=== PATIENT | female | born 1985 | race Asian ===

== ENCOUNTER 2022-03-19 05:44 | Inpatient (IN) ==
[2022-03-19] MEDS ORDERED: OXYTOCIN 30 UNITS/500 ML BAG IV PRN ×3 (06:16→23:33)
[2022-03-19] MEDS ORDERED: LIDOCAINE 1% LOCAL 20 ML VIAL INFIL PRN (06:16)
[2022-03-19] MEDS: LACTATED RINGER'S 1,000 ML IV PRN ×4 (06:24→19:08)
[2022-03-19 07:01] LABS: Hematocrit (blood only) 36.8 % (34.1-44.9); Hemoglobin 12.6 g/dl (12.0-16.0); Mean Corpuscular Hemoglobin 31.6 pg (25.0-34.0); Mean Corpuscular Hgb Conc 34.2 g/dL (32.0-36.0); Mean Corpuscular Volume 92.2 fL (80.0-100.0); Mean Platelet Volume 9.5 fL (9.4-12.3); Platelet Count 206 K/uL (130-400); RDW Coefficient of Variation 12.8 % (11.5-14.5); RDW Standard Deviation 42.6 fL (36.4-46.3); Red Blood Count 3.99 M/uL (3.93-5.22); White Blood Count 11.62 K/ul (4.8-10.8)
[2022-03-19] MEDS ORDERED: ePHEDrine sulfate 50 MG/ML AMP ONE (07:01)
[2022-03-19] MEDS ORDERED: LIDOCAINE 2%/EPINEPHRINE 1:200,000 20 ML SDV ONE (07:02)
[2022-03-19] MEDS ORDERED: fentaNYL 2MCG/ML ROPIVACAINE 1.25MG/ML 100 ML BAG EPI ONE (07:02)
[2022-03-19] MEDS ORDERED: BUPIVACAINE 0.25% 30 ML VIAL ONE (07:02)
[2022-03-19] MEDS ORDERED: SODIUM CHLORIDE 0.9% INJ 10 ML VIAL ONE (07:02)
[2022-03-19] MEDS ORDERED: fentaNYL citrate 100 MCG/2 ML VIAL ONE (07:02)
[2022-03-19] MEDS ORDERED: NALOXONE HCL 1 MG in SODIUM CHLORIDE 0.9% 1000ML 1,000 ML IV PRN (07:13)
[2022-03-19] MEDS ORDERED: ePHEDrine sulfate 50 MG/ML AMP IV PRN (07:13)
[2022-03-19] MEDS ORDERED: NALBUPHINE HCL INJ 10 MG/ML AMP IV PRN (07:13)
[2022-03-19] MEDS ORDERED: NALOXONE HCL 0.4 MG/1 ML VIAL/CARP IV PRN (07:13)
[2022-03-19] MEDS ORDERED: diphenhydrAMINE 50 MG/ML VIAL IV PRN (07:13)
--- NOTE | 2022-03-19 07:13 | Anesthesiology Consultation ---
Date of Service March 19, 2022 Assessment & Plan (1) Encounter for pre-operative examination: Chart Review Chart Review: Patient NOT seen in Pre Admission Testing and Acceptable Risk for Labor Epidural History Height/Weight Height: 5 ft 5 in Weight: 68.946 kg Allergies Allergy/AdvReac Type Severity Reaction Status Date / Time No Known Allergies Allergy Verified 03/18/22 10:46 Medications Home Medications Medication Instructions Recorded Confirmed Last Taken prenat.vits,marissa,vfp-wqjp-pbfdy 1 tab PO DAILY 07/30/21 03/19/22 03/18/22 09:00 Active Medications Generic Name Dose Route Start Last Admin Trade Name Freq PRN Reason Stop Dose Admin Lactated Ringer's 1,000 mls @ 125 mls/hr 03/19/22 06:16 03/19/22 06:24 Lr IV 03/21/22 06:15 999 mls/hr .Q8H PRN Administration L&D Protocol Protocol Past Medical History Medical History History of chicken pox Uterine polyp Past Family History Family History Denies family history of Ovarian cancer Breast cancer Colorectal cancer Past Surgical History Surgical History Status post hysteroscopic polypectomy Social History Smoking Status: Never smoker Hx Alcohol Use: No Hx Substance Use: No Physical Exam Vital Signs Last Vital Signs Temp 98.2 F 03/19/22 05:55 Pulse 83 03/19/22 05:51 Resp 18 03/19/22 05:55 BP 110/64 03/19/22 05:51 Testing Laboratory Results 03/19/22 06:45
[2022-03-19] MEDS: fentaNYL 2MCG/ML ROPIVACAINE 1.25MG/ML 100 ML BAG EPI PRN ×2 (07:38→16:25)
--- NOTE | 2022-03-19 08:16 | Labor Progress Brief Note ---
Date of Service March 19, 2022 Subjective Comfortable with epidural. at bedside, supportive. Assessment & Plan (1) Normal labor: Plan: Continue current management, anticipate Admission and Anticipated Discharge Date Admission Date: March 19, 2022 Physical Exam Genitourinary: 7/100/-1 AROM clear fluid FHT Cat 1 [place] Q5-6 Results & Data ([facility]) Vital Signs (Past 12 Hours) Vital Signs Temp Pulse Resp BP Pulse Ox 03/19/22 08:13 77 98 03/19/22 08:08 84 97 03/19/22 08:04 76 97 03/19/22 08:00 68 97/57 L 03/19/22 07:58 75 97 03/19/22 07:54 77 97 03/19/22 07:48 70 98 03/19/22 07:44 69 03/19/22 07:44 72 93/55 L 98 03/19/22 07:41 78 92/54 L 03/19/22 07:39 89 97 03/19/22 07:38 88 91/51 L 03/19/22 07:35 82 99/56 L 03/19/22 07:33 83 96 03/19/22 07:32 80 103/60 03/19/22 07:29 82 103/59 L 03/19/22 07:28 92 H 97 03/19/22 07:26 86 112/59 L 03/19/22 07:24 88 97 03/19/22 07:22 86 106/56 L 03/19/22 07:18 97 H 96 03/19/22 07:13 82 98 03/19/22 05:51 83 110/64 03/19/22 05:55 98.2 F 18 Coding Level of Care Code None Diagnoses Normal labor O80; Z37.9
--- NOTE | 2022-03-19 16:46 | Labor Progress Brief Note ---
Date of Service March 19, 2022 Subjective FHT Cat 1 [place] irreg, Q 2-6 SVE 9/100/-1 per RN Will start pitocin for more regular contraction pattern in hopes of vaginal delivery. Assessment & Plan Admission and Anticipated Discharge Date Admission Date: March 19, 2022 Results & Data ([facility]) Vital Signs (Past 12 Hours) Vital Signs Temp Pulse Resp BP Pulse Ox 03/19/22 16:43 85 96 03/19/22 16:40 94 H 91 03/19/22 16:38 82 96 03/19/22 16:33 74 98 03/19/22 16:31 83 109/65 03/19/22 16:28 91 H 98 03/19/22 16:23 70 97 03/19/22 16:18 76 98 03/19/22 16:16 72 91/64 L 03/19/22 16:13 73 96 03/19/22 16:08 75 97 03/19/22 16:03 85 97 03/19/22 16:01 75 115/68 03/19/22 15:58 74 98 03/19/22 15:53 73 97 03/19/22 15:48 79 99 03/19/22 15:45 71 105/65 03/19/22 15:43 36.9 C 73 20 97 03/19/22 15:38 71 97 03/19/22 15:37 78 94 03/19/22 15:33 71 98 03/19/22 15:30 68 102/62 03/19/22 15:28 67 97 03/19/22 15:23 69 97 03/19/22 15:18 71 97 03/19/22 15:16 64 109/66 03/19/22 15:13 72 97 03/19/22 15:08 68 96 03/19/22 15:03 63 96 03/19/22 15:00 66 102/64 03/19/22 14:58 74 97 03/19/22 14:53 62 96 03/19/22 14:50 16 03/19/22 14:50 16 03/19/22 14:20 18 03/19/22 14:20 37.0 C 18 03/19/22 14:48 65 97 03/19/22 14:45 66 99/62 L 03/19/22 14:43 73 97 03/19/22 14:38 70 96 03/19/22 14:33 71 96 03/19/22 14:30 65 98/62 L 03/19/22 14:28 69 97 03/19/22 14:23 69 97 03/19/22 14:18 71 98 03/19/22 14:15 75 99/62 L 03/19/22 14:13 95 H 99 03/19/22 14:08 75 97 03/19/22 14:00 16 03/19/22 14:00 16 03/19/22 14:03 89 97 03/19/22 14:01 71 93/54 L 03/19/22 13:58 75 98 03/19/22 13:53 77 97 03/19/22 13:48 73 97 03/19/22 13:46 72 93/58 L 03/19/22 13:43 72 97 03/19/22 13:38 79 97 03/19/22 13:33 86 98 03/19/22 13:30 79 16 92/55 L 03/19/22 13:00 16 03/19/22 13:00 16 03/19/22 13:28 97 H 97 03/19/22 13:23 77 97 03/19/22 13:18 83 97 03/19/22 13:15 78 91/56 L 03/19/22 13:13 77 97 03/19/22 13:08 75 97 03/19/22 13:03 82 97 03/19/22 13:01 71 84/52 L 03/19/22 12:58 73 97 03/19/22 12:53 73 98 03/19/22 12:48 81 95 03/19/22 12:45 68 91/52 L 03/19/22 12:43 74 97 03/19/22 12:38 73 97 03/19/22 12:33 81 98 03/19/22 12:30 68 16 89/55 L 03/19/22 12:28 70 97 03/19/22 12:23 66 97 03/19/22 12:18 68 97 03/19/22 12:14 71 92/55 L 03/19/22 12:13 68 98 03/19/22 12:08 74 97 03/19/22 12:03 74 98 03/19/22 12:00 65 16 88/51 L 03/19/22 11:58 76 97 03/19/22 11:30 18 03/19/22 11:30 18 03/19/22 11:53 68 98 03/19/22 11:45 18 03/19/22 11:45 18 03/19/22 11:48 61 98 03/19/22 11:46 69 91/60 L 03/19/22 11:43 67 97 03/19/22 11:38 66 98 03/19/22 11:33 65 97 03/19/22 11:32 61 101/65 03/19/22 11:28 63 98 03/19/22 11:23 64 98 03/19/22 11:18 61 97 03/19/22 11:15 62 105/65 03/19/22 11:13 72 98 03/19/22 11:08 61 97 03/19/22 11:03 60 97 03/19/22 11:00 58 L 16 100/59 L 03/19/22 10:30 16 03/19/22 10:30 16 03/19/22 10:58 59 L 97 03/19/22 10:53 74 97 03/19/22 10:48 64 98 03/19/22 10:46 60 99/58 L 03/19/22 10:43 63 97 03/19/22 10:38 69 97 03/19/22 10:33 66 96 03/19/22 10:31 65 99/60 L 03/19/22 10:28 68 96 03/19/22 10:23 78 97 03/19/22 10:18 74 97 03/19/22 10:15 36.8 C 70 18 93/57 L 03/19/22 10:13 75 98 03/19/22 10:08 76 97 03/19/22 10:03 77 97 03/19/22 10:00 78 16 98/54 L 03/19/22 09:58 77 98 03/19/22 09:53 66 97 03/19/22 09:48 65 97 03/19/22 09:45 60 85/55 L 03/19/22 09:43 66 97 03/19/22 09:38 65 97 03/19/22 09:33 69 97 03/19/22 09:30 75 89/56 L 03/19/22 09:28 78 98 03/19/22 09:23 64 97 03/19/22 09:18 63 97 03/19/22 09:15 67 88/50 L 03/19/22 09:13 62 97 03/19/22 09:08 63 96 03/19/22 09:00 16 03/19/22 09:00 16 03/19/22 09:03 63 96 03/19/22 08:59 66 93/54 L 03/19/22 08:58 67 97 03/19/22 08:54 67 96 03/19/22 08:49 69 97 03/19/22 08:44 73 87/52 L 03/19/22 08:43 76 98 03/19/22 08:39 72 97 03/19/22 08:33 74 98 03/19/22 08:31 73 89/51 L 03/19/22 08:28 77 98 03/19/22 08:23 72 97 03/19/22 08:19 73 98 03/19/22 08:16 82 100/59 L 03/19/22 08:13 77 98 03/19/22 08:08 84 97 03/19/22 08:04 76 97 03/19/22 08:00 68 16 97/57 L 03/19/22 07:58 75 97 03/19/22 07:54 77 97 03/19/22 07:48 70 98 03/19/22 07:44 69 03/19/22 07:44 72 93/55 L 98 03/19/22 07:41 78 92/54 L 03/19/22 07:39 89 97 03/19/22 07:38 88 91/51 L 03/19/22 07:35 82 99/56 L 03/19/22 07:33 83 96 03/19/22 07:32 80 103/60 03/19/22 07:29 82 103/59 L 03/19/22 07:28 92 H 97 03/19/22 07:26 86 112/59 L 03/19/22 07:24 88 97 03/19/22 07:22 86 106/56 L 03/19/22 07:18 97 H 96 03/19/22 07:13 82 98 03/19/22 05:51 83 110/64 03/19/22 05:55 36.8 C 18 Coding Level of Care Code None
--- NOTE | 2022-03-19 20:41 | Obstetrical Progress Note ---
Date of Service March 19, 2022 Assessment & Plan Admission and Anticipated Discharge Date Admission Date: March 19, 2022 Subjective Comfortable, some pressure. Cervix complete dilation, 1+ station. FHT Cat 1 [place] Q2 Will start pushing. Results & Data ([facility]) Vital Signs (Past 12 Hours) Vital Signs Temp Pulse Resp BP Pulse Ox O2 Del Method 03/19/22 19:04 37.2 C 16 03/19/22 19:04 Room Air 03/19/22 20:37 92 H 92 03/19/22 20:33 79 98 03/19/22 20:30 80 94 03/19/22 20:31 80 107/56 L 03/19/22 20:28 81 98 03/19/22 20:23 82 98 03/19/22 20:18 82 98 03/19/22 20:15 82 111/63 03/19/22 20:13 83 97 03/19/22 20:08 82 98 03/19/22 20:03 91 H 97 03/19/22 20:01 77 104/60 03/19/22 19:58 81 98 03/19/22 19:53 97 H 97 03/19/22 19:51 106 H 93 03/19/22 19:48 89 98 03/19/22 19:45 76 101/55 L 03/19/22 19:43 82 97 03/19/22 19:38 76 97 03/19/22 19:33 82 98 03/19/22 19:30 77 18 104/59 L 03/19/22 19:28 76 96 03/19/22 19:00 18 03/19/22 19:00 18 03/19/22 19:05 18 03/19/22 19:05 37.2 C 18 03/19/22 19:23 77 96 03/19/22 19:18 74 98 03/19/22 19:15 79 87/50 L 03/19/22 19:13 77 98 03/19/22 19:08 74 97 03/19/22 19:03 71 97 03/19/22 18:59 72 102/58 L 03/19/22 18:58 73 97 03/19/22 18:53 71 98 03/19/22 18:48 77 98 03/19/22 18:44 70 107/60 03/19/22 18:43 70 98 03/19/22 18:38 76 98 03/19/22 18:33 75 98 03/19/22 18:29 75 18 114/67 03/19/22 18:28 69 98 03/19/22 18:25 72 94 03/19/22 18:23 76 97 03/19/22 18:18 75 98 03/19/22 18:17 72 112/63 03/19/22 18:13 76 98 03/19/22 18:08 85 97 03/19/22 18:03 75 98 03/19/22 18:00 78 103/57 L 03/19/22 17:58 80 97 03/19/22 17:53 72 98 03/19/22 17:48 74 98 03/19/22 17:47 77 103/60 03/19/22 17:43 82 98 03/19/22 17:38 79 98 03/19/22 17:33 82 98 03/19/22 17:30 70 105/59 L 03/19/22 17:28 79 98 03/19/22 17:23 78 99 03/19/22 17:18 86 97 03/19/22 17:16 36.9 C 82 18 136/106 H 03/19/22 17:13 90 98 03/19/22 17:08 73 97 03/19/22 17:03 76 97 03/19/22 17:00 74 104/59 L 03/19/22 16:58 72 97 03/19/22 16:53 73 97 03/19/22 16:48 73 97 03/19/22 16:43 85 96 03/19/22 16:40 94 H 91 03/19/22 16:38 82 96 03/19/22 16:33 74 98 03/19/22 16:31 83 20 109/65 03/19/22 16:28 91 H 98 03/19/22 16:23 70 97 03/19/22 16:18 76 98 03/19/22 16:16 72 91/64 L 03/19/22 16:13 73 96 03/19/22 16:08 75 97 03/19/22 16:03 85 97 03/19/22 16:01 75 115/68 03/19/22 15:58 74 98 03/19/22 15:53 73 97 03/19/22 15:48 79 99 12/13/22 15:45 71 105/65 03/19/22 15:43 36.9 C 73 20 97 03/19/22 15:38 71 97 03/19/22 15:37 78 94 03/19/22 15:33 71 98 03/19/22 15:30 68 102/62 03/19/22 15:28 67 97 03/19/22 15:23 69 97 03/19/22 15:18 71 97 03/19/22 15:16 64 109/66 03/19/22 15:13 72 97 03/19/22 15:08 68 96 03/19/22 15:03 63 96 03/19/22 15:00 66 102/64 03/19/22 14:58 74 97 03/19/22 14:53 62 96 03/19/22 14:50 16 03/19/22 14:50 16 03/19/22 14:20 18 03/19/22 14:20 37.0 C 18 03/19/22 14:48 65 97 03/19/22 14:45 66 99/62 L 03/19/22 14:43 73 97 03/19/22 14:38 70 96 03/19/22 14:33 71 96 03/19/22 14:30 65 98/62 L 03/19/22 14:28 69 97 03/19/22 14:23 69 97 03/19/22 14:18 71 98 03/19/22 14:15 75 99/62 L 03/19/22 14:13 95 H 99 03/19/22 14:08 75 97 03/19/22 14:00 16 03/19/22 14:00 16 03/19/22 14:03 89 97 03/19/22 14:01 71 93/54 L 03/19/22 13:58 75 98 03/19/22 13:53 77 97 03/19/22 13:48 73 97 03/19/22 13:46 72 93/58 L 03/19/22 13:43 72 97 03/19/22 13:38 79 97 03/19/22 13:33 86 98 03/19/22 13:30 79 16 92/55 L 03/19/22 13:00 16 03/19/22 13:00 16 03/19/22 13:28 97 H 97 12/13/22 13:23 77 97 03/19/22 13:18 83 97 03/19/22 13:15 78 91/56 L 03/19/22 13:13 77 97 03/19/22 13:08 75 97 03/19/22 13:03 82 97 03/19/22 13:01 71 84/52 L 03/19/22 12:58 73 97 03/19/22 12:53 73 98 03/19/22 12:48 81 95 03/19/22 12:45 68 91/52 L 03/19/22 12:43 74 97 03/19/22 12:38 73 97 03/19/22 12:33 81 98 03/19/22 12:30 68 16 89/55 L 03/19/22 12:28 70 97 03/19/22 12:23 66 97 03/19/22 12:18 68 97 03/19/22 12:14 71 92/55 L 03/19/22 12:13 68 98 03/19/22 12:08 74 97 03/19/22 12:03 74 98 03/19/22 12:00 65 16 88/51 L 03/19/22 11:58 76 97 03/19/22 11:30 18 03/19/22 11:30 18 03/19/22 11:53 68 98 03/19/22 11:45 18 03/19/22 11:45 18 03/19/22 11:48 61 98 03/19/22 11:46 69 91/60 L 03/19/22 11:43 67 97 03/19/22 11:38 66 98 03/19/22 11:33 65 97 03/19/22 11:32 61 101/65 03/19/22 11:28 63 98 03/19/22 11:23 64 98 03/19/22 11:18 61 97 03/19/22 11:15 62 105/65 03/19/22 11:13 72 98 03/19/22 11:08 61 97 03/19/22 11:03 60 97 03/19/22 11:00 58 L 16 100/59 L 03/19/22 10:30 16 03/19/22 10:30 16 03/19/22 10:58 59 L 97 03/19/22 10:53 74 97 03/19/22 10:48 64 98 03/19/22 10:46 60 99/58 L 03/19/22 10:43 63 97 03/19/22 10:38 69 97 03/19/22 10:33 66 96 03/19/22 10:31 65 99/60 L 03/19/22 10:28 68 96 03/19/22 10:23 78 97 03/19/22 10:18 74 97 03/19/22 10:15 36.8 C 70 18 93/57 L 03/19/22 10:13 75 98 03/19/22 10:08 76 97 03/19/22 10:03 77 97 03/19/22 10:00 78 16 98/54 L 03/19/22 09:58 77 98 03/19/22 09:53 66 97 03/19/22 09:48 65 97 03/19/22 09:45 60 85/55 L 03/19/22 09:43 66 97 03/19/22 09:38 65 97 03/19/22 09:33 69 97 03/19/22 09:30 75 89/56 L 03/19/22 09:28 78 98 03/19/22 09:23 64 97 03/19/22 09:18 63 97 03/19/22 09:15 67 88/50 L 03/19/22 09:13 62 97 03/19/22 09:08 63 96 03/19/22 09:00 16 03/19/22 09:00 16 03/19/22 09:03 63 96 03/19/22 08:59 66 93/54 L 03/19/22 08:58 67 97 03/19/22 08:54 67 96 03/19/22 08:49 69 97 03/19/22 08:44 73 87/52 L 03/19/22 08:43 76 98 PG Care Time/CCT Total # of Minutes Spent Total Time Spent with Patient: Total time spent is greater than 50% in coordination of care (as documented) at patient's floor/unit and/or counseling patient: Coding Level of Care Code None
--- NOTE | 2022-03-19 23:02 | Delivery Summary ---
Vaginal Delivery Summary Date of Service March 19, 2022 Vaginal Delivery Summary and 2nd Degree LAC Vaginal Delivery Summary: Pre-delivery diagnoses: 36yo @ 40 4/7, spontaneous labor, AMA, post-dates Post-delivery diagnoses: same Procedure: spontaneous vaginal delivery, repair of bilateral vaginal sulcal tears and 2nd degree perineal laceration Surgeon: Catarina French DO Complications: none Findings: Viable male . Apgars: 8/9 . Weight pending, please see nursery records Estimated blood loss: 600ml Description of delivery: The patient progressed to complete with epidural anesthesia. She then began to push. She spontaneously vaginally delivered a viable from the cephalic presentation. The head delivered in THEODORA position. The anterior shoulder delivered, followed by the posterior shoulder, followed by the body. No nuchal cord. The baby was placed on mother's abdomen and a spontaneous cry was heard. Delayed cord clamping was employed, and the cord was doubly clamped and cut. Cord blood was obtained. The placenta was d elivered spontaneously intact with a 3-vessel cord. The uterus and vagina were swept of clots and debris. IV pitocin was given. The uterus became firm. The cervix, vagina, and perineum were inspected. Deep bilateral vaginal sulcal tears noted, repaired with 3-0 vicryl. Then the 2nd degree perineal laceration was repaired with 3-0 vicryl in standard fashion- no entry to anal sphincter, however a single [id number] suture of 3-0 chromic was used to support the anterior portion of this muscle. The vaginal tissue was edematous and tore with each stitch, therefore the repair was carefully performed. At the conclusion of the repair - no active vascular bleeding, however there was a small amount of oozing from these multiple points of friable tissue. Therefore, Deanna powder was applied and 3 Raytec sponges used as pressure to obtain excellent hemostasis. The mother and baby are recovering in stable and good condition in the room. Sponge, needle and instrument counts were correct x 2. Catarina French DO [facility] Vaginal Delivery Charge Vaginal Delivery Codes: 28702 global code for the antepartum, delivery, and post- Delivery Type Details: and 2nd Degree LAC
[2022-03-19] MEDS ORDERED: BENZOCAINE 20% AER SPR 82.5 GM CAN EXT PRN (23:33)
[2022-03-19] MEDS ORDERED: DIPHTHERIA/TETANUS/PERTUSSIS 0.5 ML SYR/VIAL IM ONE (23:33)
[2022-03-19] MEDS ORDERED: HYDROCORTISONE ACETATE 25 MG SUPP PR PRN (23:33)
[2022-03-19] MEDS ORDERED: oxyCODONE/ACETAMINOPHEN 5mg/325mg TAB PO PRN (23:33)
[2022-03-19] MEDS ORDERED: bisacodyL 10 MG SUPP PR PRN (23:33)
[2022-03-19] MEDS ORDERED: ACETAMINOPHEN 325 MG TAB PO PRN (23:33)
[2022-03-19] MEDS: IBUPROFEN 600 MG TAB PO PRN (23:41)
[2022-03-20] MEDS: IBUPROFEN 600 MG TAB PO PRN ×3 (04:58→16:03)
--- NOTE | 2022-03-20 05:30 | Obstetrical Progress Note ---
Date of Service March 20, 2022 Assessment & Plan (1) care following vaginal delivery: Plan - Overall, feeling well and eating well today - Infant feeding going well without concern - Urinating and and passing gas appropriately, continue to follow urination - Ambulating well - Pain controlled w/ Ibuprofen - Hgb 12.6 on 03/19, notable blood loss during delivery, light vaginal bleeding this AM, continue to monitor - BP 91/60, P 60, vitals stable - Routine PP care progressing well - Anticipate discharge tomorrow - Recommending f/u outpatient in 6 weeks Admission and Anticipated Discharge Date Admission Date: March 19, 2022 Supervising Physician Co-Signing Physician Notes Resident Physician Supervision Note: I interviewed and examined the patient. Discussed with Dr. Anglin and agree with findings and plan as documented in the note. Any exceptions or clarifications are listed here: PPD#1 doing well, scant lochia. Sponges removed. Documented By: Catarina French, DO Subjective Patient is a 36 y/o female who is PPD 1 following vaginal delivery at 40w4d. She reports feeling well overall this morning. - Ambulation - well throughout room - Voiding/Joshi - small independent voids this AM, no dysuria or pressure - Gas/Stool - passing gas, no bowel movement - Diet - regular, no nausea or emesis - Lochia - diminishing, light amount - Feeding Type - breast feeding goign well - Pain Level - 6/10, controlled with Ibuprofen Review of Systems - Denies fever, chills, sweats - Denies shortness of breath, difficulty breathing, chest pain, palpitations, chest pressure. - Denies breast pain. - Denies dysuria. - Denies headache or changes in vision. Physical Exam Physical Exam: General: Alert, oriented. No acute distress. Cardiac: RRR, normal S1/S2, no murmurs/rubs/gallops. Respiratory: Non-labored, CTAB, no wheezes/rales/rhonchi. Symmetric chest rise. Abdomen: Soft, nontender, nondistended. Bowel sounds present. Uterus: Uterine fundus firm, palpable 2 cm below umbilicus. Lower Extremities: No lower extremity edema or swelling. No deep calf pain. Kathy's negative bilaterally. Results & Data ([facility]) Vital Signs (Past 12 Hours) Vital Signs Temp Pulse Pulse Resp BP BP Pulse Ox 12/14/22 04:50 36.6 C 90 16 91/60 L 98 03/20/22 02:15 36.7 C 101 H 16 92/59 L 97 03/20/22 00:30 18 03/19/22 23:30 99 H 18 94/51 L 03/19/22 23:15 99 H 18 94/51 L 03/20/22 00:00 18 03/19/22 23:00 18 03/19/22 22:45 18 03/19/22 22:30 18 03/19/22 19:04 37.2 C 16 03/19/22 19:04 03/20/22 00:31 101 H 92/54 L 03/20/22 00:16 100 H 106/59 L 03/20/22 00:06 102 H 110/53 L 03/20/22 00:01 112 H 83/50 L 03/19/22 23:46 99 H 94/51 L 03/19/22 23:31 86 105/59 L 03/19/22 23:16 81 107/59 L 03/19/22 23:01 100 H 101/56 L 03/19/22 22:46 101 H 105/56 L 03/19/22 22:34 82 99 03/19/22 22:31 83 105/59 L 03/19/22 22:29 82 107/61 99 03/19/22 22:24 92 H 98 03/19/22 22:19 77 99 03/19/22 22:14 82 98 03/19/22 22:15 83 117/58 L 03/19/22 22:09 83 99 03/19/22 22:05 37.0 C 03/19/22 22:04 81 99 03/19/22 21:59 95 H 99 03/19/22 22:00 96 H 97/53 L 03/19/22 21:15 20 03/19/22 21:15 20 03/19/22 21:54 94 H 100 03/19/22 21:49 88 99 03/19/22 21:44 87 99 03/19/22 21:45 83 108/54 L 03/19/22 21:40 83 94 03/19/22 21:39 87 98 03/19/22 21:35 110 H 92 03/19/22 21:34 109 H 98 12/13/22 21:31 97 H 92/54 L 03/19/22 21:30 99 H 20 88 L 03/19/22 21:29 94 H 99 03/19/22 21:24 89 97 03/19/22 21:19 80 97 03/19/22 21:20 82 92 03/19/22 21:14 83 99 03/19/22 21:12 96 H 91 03/19/22 21:09 76 96 03/19/22 21:00 18 03/19/22 21:00 18 03/19/22 20:45 20 03/19/22 20:45 20 03/19/22 21:04 97 H 91 03/19/22 21:02 89 84 L 03/19/22 21:01 92 H 131/56 L 03/19/22 20:59 81 98 03/19/22 20:56 80 92 03/19/22 20:53 82 98 03/19/22 20:50 77 94 03/19/22 20:48 83 98 03/19/22 20:00 18 03/19/22 20:00 18 03/19/22 20:43 80 77 L 03/19/22 20:42 37.4 C 03/19/22 20:38 88 99 03/19/22 20:37 92 H 92 03/19/22 20:33 79 98 03/19/22 20:30 80 20 94 03/19/22 20:31 80 107/56 L 03/19/22 20:28 81 98 03/19/22 20:23 82 98 03/19/22 20:18 82 98 03/19/22 20:15 82 111/63 03/19/22 20:13 83 97 03/19/22 20:08 82 98 03/19/22 20:03 91 H 97 03/19/22 20:01 77 104/60 03/19/22 19:58 81 98 03/19/22 19:53 97 H 97 03/19/22 19:51 106 H 93 03/19/22 19:48 89 98 03/19/22 19:45 76 101/55 L 03/19/22 19:43 82 97 03/19/22 19:38 76 97 03/19/22 19:33 82 98 03/19/22 19:30 77 18 104/59 L 03/19/22 19:28 76 96 03/19/22 19:00 18 03/19/22 19:00 18 03/19/22 19:05 18 03/19/22 19:05 37.2 C 18 03/19/22 19:23 77 96 03/19/22 19:18 74 98 03/19/22 19:15 79 87/50 L 03/19/22 19:13 77 98 03/19/22 19:08 74 97 03/19/22 19:03 71 97 03/19/22 18:59 72 102/58 L 03/19/22 18:58 73 97 03/19/22 18:53 71 98 03/19/22 18:48 77 98 03/19/22 18:44 70 107/60 03/19/22 18:43 70 98 03/19/22 18:38 76 98 03/19/22 18:33 75 98 03/19/22 18:29 75 18 114/67 03/19/22 18:28 69 98 03/19/22 18:25 72 94 03/19/22 18:23 76 97 03/19/22 18:18 75 98 03/19/22 18:17 72 112/63 03/19/22 18:13 76 98 03/19/22 18:08 85 97 03/19/22 18:03 75 98 03/19/22 18:00 78 103/57 L 03/19/22 17:58 80 97 03/19/22 17:53 72 98 03/19/22 17:48 74 98 03/19/22 17:47 77 103/60 03/19/22 17:43 82 98 03/19/22 17:38 79 98 03/19/22 17:33 82 98 03/19/22 17:30 70 105/59 L O2 Del Method 03/20/22 04:50 Room Air 03/20/22 02:15 Room Air 03/20/22 00:30 03/19/22 23:30 03/19/22 23:15 03/20/22 00:00 03/19/22 23:00 03/19/22 22:45 03/19/22 22:30 03/19/22 19:04 03/19/22 19:04 Room Air 03/20/22 00:31 03/20/22 00:16 03/20/22 00:06 03/20/22 00:01 03/19/22 23:46 03/19/22 23:31 03/19/22 23:16 03/19/22 23:01 03/19/22 22:46 03/19/22 22:34 03/19/22 22:31 03/19/22 22:29 03/19/22 22:24 03/19/22 22:19 03/19/22 22:14 03/19/22 22:15 03/19/22 22:09 03/19/22 22:05 03/19/22 22:04 03/19/22 21:59 03/19/22 22:00 03/19/22 21:15 03/19/22 21:15 03/19/22 21:54 03/19/22 21:49 03/19/22 21:44 03/19/22 21:45 03/19/22 21:40 03/19/22 21:39 03/19/22 21:35 03/19/22 21:34 03/19/22 21:31 03/19/22 21:30 03/19/22 21:29 03/19/22 21:24 03/19/22 21:19 03/19/22 21:20 03/19/22 21:14 03/19/22 21:12 03/19/22 21:09 03/19/22 21:00 03/19/22 21:00 03/19/22 20:45 03/19/22 20:45 03/19/22 21:04 03/19/22 21:02 03/19/22 21:01 03/19/22 20:59 03/19/22 20:56 03/19/22 20:53 03/19/22 20:50 03/19/22 20:48 03/19/22 20:00 03/19/22 20:00 03/19/22 20:43 03/19/22 20:42 03/19/22 20:38 03/19/22 20:37 03/19/22 20:33 03/19/22 20:30 03/19/22 20:31 03/19/22 20:28 03/19/22 20:23 03/19/22 20:18 03/19/22 20:15 03/19/22 20:13 03/19/22 20:08 03/19/22 20:03 03/19/22 20:01 03/19/22 19:58 03/19/22 19:53 03/19/22 19:51 03/19/22 19:48 03/19/22 19:45 03/19/22 19:43 03/19/22 19:38 03/19/22 19:33 03/19/22 19:30 03/19/22 19:28 03/19/22 19:00 03/19/22 19:00 03/19/22 19:05 03/19/22 19:05 03/19/22 19:23 03/19/22 19:18 03/19/22 19:15 03/19/22 19:13 03/19/22 19:08 03/19/22 19:03 03/19/22 18:59 03/19/22 18:58 03/19/22 18:53 03/19/22 18:48 03/19/22 18:44 03/19/22 18:43 03/19/22 18:38 03/19/22 18:33 03/19/22 18:29 03/19/22 18:28 03/19/22 18:25 03/19/22 18:23 03/19/22 18:18 03/19/22 18:17 03/19/22 18:13 03/19/22 18:08 03/19/22 18:03 03/19/22 18:00 03/19/22 17:58 03/19/22 17:53 03/19/22 17:48 03/19/22 17:47 03/19/22 17:43 03/19/22 17:38 03/19/22 17:33 03/19/22 17:30 Resident Activity Tracking Resident Involvement: Resident Care Provided Care Provided: OB Delivery
[2022-03-20 06:17] LABS: Hemoglobin 9.8 g/dl (12.0-16.0)
[2022-03-20] MEDS: DOCUSATE SODIUM 100 MG CAP PO SCH ×2 (08:45→19:42)
[2022-03-20] MEDS: PRENATAL VITAMIN 1 TAB PO SCH (08:45)
--- NOTE | 2022-03-20 09:35 | Anesthesia Procedure Note ---
Date of Service March 20, 2022 Anesthesia Post Epidural Note Vital Signs Vital Signs: Temp Pulse Resp BP Pulse Ox O2 Del Method 36.6 C 90 16 91/60 L 98 03/20/22 04:50 03/20/22 04:50 03/20/22 04:50 03/20/22 04:50 03/20/22 04:50 03/20/22 04:50 Pain Intensity Bilateral Episiotomy/Laceration: Pain Intensity: 6 Notes Mental Status: alert / awake / arousable and participated in evaluation Nausea / Vomiting: adequately controlled Pain: adequately controlled Airway Patency, RR, SpO2: stable & adequate BP & HR: stable & adequate Hydration State: stable & adequate Neuraxial Anesthesia: was administered and sensory block resolved Anesthetic Complications: no major complications apparent and Pt Satisfied with anesthetic care Epidural: Removed without complications and With tip intact
[2022-03-20] MEDS ORDERED: bisacodyL 5 MG TABEC PO SCH (20:00)
[2022-03-21] MEDS: IBUPROFEN 600 MG TAB PO PRN ×2 (03:35→08:21)
[2022-03-21] MEDS: DOCUSATE SODIUM 100 MG CAP PO SCH (08:19)
[2022-03-21] MEDS: PRENATAL VITAMIN 1 TAB PO SCH (08:19)
--- NOTE | 2022-03-21 08:59 | Obstetrical Progress Note ---
Date of Service March 21, 2022 Assessment & Plan (1) care following vaginal delivery: satisfactory course discharge to home follow up in 6 weeks Subjective Ambulation: ambulating normally Voiding: no voiding problems Passing Gas:: Yes Diet Tolerance:: regular diet Feeding Type:: breast feeding doing well- some cramping with Review of Systems All systems reviewed & are unremarkable except as noted in HPI & below Physical Exam Constitutional WD/WN, vitals as above Psychiatric A+Ox3, euthymic affect Genitourinary OB Exam Abdomen: + fundal height Fundus: + firm and + relation to umbilicus (2 below) Results & Data ([facility]) Vital Signs (Past 12 Hours) Vital Signs Temp Pulse Resp BP Pulse Ox O2 Del Method 03/21/22 07:35 98.4 F 94 H 18 93/57 L 97 Room Air 03/21/22 03:30 97.9 F 94 H 18 95/63 L 98 Room Air
== END 2022-03-21 13:30 | disposition home or self-care (01) | DRG 807 ==
LOC: OPB 05:44 → 4S1 05:45 → 4E2 03-20 00:45
DX: O70.1 Second degree perineal laceration during delivery; O09.513 Supervision of elderly primigravida, third trimester; Z79.899 Other long term (current) drug therapy; O48.0 Post-term pregnancy; Z37.0 Single live birth; Z3A.40 40 weeks gestation of pregnancy